=== PATIENT | female | born 1975 | race Caucasian/White ===

== ENCOUNTER 2018-06-17 19:24 | Observation (INO) | payer SELFPAY ==
[2018-06-17] MEDS ORDERED: Mag-Al Plus 1200 MG/1200 MG/120 MG/30 ML UDCUP ONE (19:41)
[2018-06-17] MEDS ORDERED: Ondansetron PF 4 MG/2 ML Vial ONE ×2 (19:41→22:55)
[2018-06-17] MEDS ORDERED: Lidocaine Viscous Sol 2% 15 ml UD Cup ONE (19:41)
[2018-06-17] MEDS ORDERED: Morphine 4 MG/ML VIAL ONE (19:41)
[2018-06-17] MEDS ORDERED: Famotidine/PF 20 mg/2ml Vial ONE (19:41)
[2018-06-17 20:28] LABS: #Basophils 0.1 thou/uL (0.0-0.2); #Eosinphils 0.5 thou/uL (0.0-0.7); #Lymphocytes 1.9 thou/uL (1.20-3.40); #Monocytes 0.6 thou/uL (0.11-0.59); #Neutrophils 5.6 thou/uL (1.40-6.50); %Basophils 0.8 % (0.0-1.0); %Eosinophils 5.8 % (0.0-10.0); %Lymphocytes 21.6 % (21.0-51.0); %Neutrophils 64.9 % (42.0-75.0); Hemoglobin 12.4 g/dL (12.0-16.0); Mean Corpuscular HGB CONC 31.8 g/dL (32.0-36.0); Mean Corpuscular Hemoglobin 27.6 pg (27.0-31.0); Mean Corpuscular Volume 86.8 fL (78.0-98.0); Mean Platelet Volume 7.1 fL (7.4-10.4); Platelet Count 275 thou/uL (130-400); RBC Distribution Width 12.8 % (11.5-14.5); Red Blood Cell (RBC) Count 4.49 mill/uL (4.20-5.40); White Blood Cell (WBC) Count 8.7 thou/uL (4.8-10.8)
[2018-06-17 20:35] LABS: Bilirubin Small (Negative); Blood, Urine Negative (Negative); Clarity Hazy (Clear); Glucose, Urine (Dipstick) Negative (Negative); Leukocyte Trace (Negative); Nitrite Negative (Negative); Protein, Urine (Dipstick) Trace mg/dL (Neg-Trace); Specific Gravity, Urine 1.026 (1.002-1.036); Urobilinogen 0.2 mg/dL (0.2-1.0); pH, Urine 5.5 (5.0-9.0)
[2018-06-17 20:37] LABS: Bacteria/HPF 1+ HPF (None Seen); RBC/HPF None Seen HPF (0-3); Squamous Epithelial 21-50 HPF (0-3); WBC/HPF 0-3 HPF (0-3)
[2018-06-17 20:38] LABS: Pregnancy Test - Urine (BHCG) Negative (Negative); Specific Gravity 1.026 (1.002-1.036)
[2018-06-17 20:39] LABS: Pregu Control Background? CLEAR/WHITE (CLR/WHITE); Pregu Control Bar Appear? YES (CONTROL BAR)
[2018-06-17 20:43] LABS: ALT (SGPT) 26 U/L (8-55); AST (SGOT) 15 U/L (5-34); Alkaline Phosphatase 50 U/L (40-150); Anion Gap 12 mmol/L (10-20); BUN (Urea Nitrogen) 15 mg/dL (7.0-18.7); Bilirubin, Total 0.4 mg/dL (0.2-1.2); CK (CPK) 48 U/L (29-168); Calc. Creatinine Clearance 0 mL/min (70-130); Calcium 9.4 mg/dL (7.8-10.44); Carbon Dioxide 26 mmol/L (22-29); Chloride 104 mmol/L (98-107); Estimated GFR-MDRD 80; Globulin 2.9 g/dL (2.4-3.5); Glucose 114 mg/dL (70-105); Lipase 10 U/L (8-78); Potassium 3.4 mmol/L (3.5-5.1); Protein, Total 6.9 g/dL (6.0-8.3); Sodium 139 mmol/L (136-145)
[2018-06-17] MEDS ORDERED: Aspirin Chewable 81 MG TAB ONE (20:52)
--- NOTE | 2018-06-17 20:55 | CT ---
CT of the abdomen and pelvis: 06/17/2018 COMPARISON: None HISTORY: Nausea, vomiting, and pain TECHNIQUE: Axial CT imaging at 5 mm intervals through abdomen and pelvis without contrast. Coronal re formatted imaging obtained. FINDINGS: The lack of contrast media limits assessment of the viscera, bowel, vascular structures, an d for lymphadenopathy. The imaged lung bases appear unremarkable. No free intraperitoneal air or fluid is seen. The hepatic parenchyma is hypodense, evidence of steatosis. Gallbladder, spleen, pancreas, and adrena l glands demonstrate no acute CT findings. No nephrolithiasis or hydronephrosis noted on either side. There is a calcification along the course of the left ureter on axial image 78 measuring 4 mm. There is no evidence for associated obstructive uropathy and thus, this is likely vascular in nature. The uterus appears surgically absent. Limited assessment of the bowel demonstrates no evidence for obstruction. No acute osseous abnormality noted. IMPRESSION: No evidence for obstructive uropathy.
[2018-06-17 21:00] LABS: CKMB 1.3 ng/mL (0-6.6)
[2018-06-18 00:01] VITALS: BMI 41.3
[2018-06-18 01:27] LABS: Troponin I 0.078 ng/mL (< 0.028)
[2018-06-18 05:18] LABS: Troponin I 0.068 ng/mL (< 0.028)
[2018-06-18] MEDS: Sodium Chloride 0.9% 1,000 ML IV SCH ×2 (10:02→18:23)
[2018-06-18] MEDS: Gabapentin 300 MG CAP PO SCH ×3 (10:03→19:19)
[2018-06-18] MEDS: Famotidine/PF 20 mg/2ml Vial SLOW IVP SCH ×2 (10:03→19:20)
[2018-06-18] MEDS: PARoxetine 20 MG TAB PO SCH (10:04)
[2018-06-18] MEDS: Ondansetron PF 4 MG/2 ML Vial IVP PRN (11:44)
[2018-06-18] MEDS ORDERED: Lidocaine 2% Viscous Solution 10 ML, Aluminum & Magnesium Hydroxide 30 ML SSW SCH (16:00)
--- NOTE | 2018-06-18 17:38 | HP ---
CHIEF COMPLAINT: Nausea, vomiting, and diarrhea. HISTORY OF PRESENT ILLNESS: The patient is a pleasant 42-year-old female with past medical history significant for borderline hyperlipidemia, fibromyalgia along with history of lupus, followed closely by her PCP, Dr. Conklin in [place], although the patient has not required any treatment thus far, who presented to the hospital with complaints of a 1-day history of nausea and vomiting along with epigastric pain. The patient's symptoms started yesterday at about 3 or 4 a.m. She had abdominal discomfort that she describes as burning, with some radiation to the back. She continued to have associated nausea and vomiting throughout the day. Eventually, her symptoms worsened to the point that she decided to seek treatment and presented to the emergency department here at [facility] for further workup and treatment. Workup on arrival included an abdominal and pelvis CT, which showed limited assessment of the viscera, bowel, and vascular structures secondary to lack of contrast, but no free intraperitoneal air or fluid was seen. Hepatic parenchyma was hypodense, evidence of steatosis. Gallbladder , spleen, and pancreas along with adrenal gland showed no acute CT findings. There was no evidence of obstructive uropathy. Lab work was significant for mild hypokalemia with level of 3.4 along with elevated troponin of 0.098, 0.078, and 0.068 respectively. Her initial EKG showed sinus tachycardia, no acute ST or T- wave changes. Followup EKG when the patient arrived to the floor showed sinus rhythm with some nonspecific ST or T-wave changes. The patient has denied any associated chest pain or shortness of breath. She is fairly active. She has denied any recent palpitations or dizziness. The patient does report that one of her neighbors who she is friends with did also come down with a stomach illness recently. The patient has denied any fever or chills. ALLERGIES: NO KNOWN DRUG ALLERGIES. HOME MEDICATIONS: 1. Gabapentin 300 mg capsule 900 mg p.o. t.i.d. 2. Paxil 60 mg p.o. daily. REVIEW OF SYSTEMS: The patient reports some chronic lower extremity mild edema that she has had for many years. Otherwise, 12-point review of systems performed and is negative except that stated above. PAST MEDICAL HISTORY: Lupus, fibromyalgia, anxiety, borderline hyperlipidemia. SOCIAL HISTORY: The patient has never smoked. She drinks alcohol rarely. She is and lives with her and teenage daughter. The patient is trying to get into [employer]. FAMILY HISTORY: Positive for coronary artery disease in both her mother and her father. She reports that her mother has had [address] Honeycutt, the first was when she was 64. Her dad also had an ID in his 60s and has had a history of stents. PAST SURGICAL HISTORY: Positive for hysterectomy. CODE STATUS: The patient is a full code, and this was discussed with the patient. PHYSICAL EXAMINATION: VITAL SIGNS: Blood pressure 124/60, respirations 22, O2 saturation is 97, pulse 92, temperature is 98.7. GENERAL: The patient is a mildly obese female who appears stated age. She is resting comfortably in bed. She is in no acute distress. HEENT: Head, atraumatic and normocephalic. Mucous membranes are moist. NECK: No lymphadenopathy. No JVD. Trachea is midline. No carotid bruits. CV: S1 and S2. Regular rate and rhythm. No appreciable murmurs, rubs, or gallops. LUNGS: Regular respiratory rate and pattern. Clear to auscultation bilaterally. ABDOMEN: Soft with positive bowel sounds. Mildly tender to palpation in the epigastric region. No masses. No organomegaly. EXTREMITIES: Trace edema bilaterally. Both extremities are warm and well perfused. +2 DP pulses bilaterally. SKIN: No rashes or discolorations. Warm with normal turgor. NEUROLOGIC: Cranial nerves 2 through 12 intact. The patient is nonfocal. LABORATORY DATA: White blood cell count 8.7, hemoglobin 12.4, hematocrit 39.0, platelets are 275. Sodium 139, potassium 3.4, chloride 104, anion gap 12, carbon dioxide 26, creatinine 0.78, estimated GFR is 80, glucose 114, lactic acid 0.8. AST, ALT, and alkaline phosphatase all within normal limits. Troponin I 0.098, 0.078, 0.068 respectively. Urinalysis shows 1+ urine bacteria and trace leukocyte esterase. IMAGING RESULTS: CT scan and EKGs as outlined in HPI. ASSESSMENT: 1. Nausea, vomiting, and diarrhea, likely secondary to viral gastroenteritis, improving with supportive care, antiemetics, and IV fluid resuscitation. 2. Demand ischemia, likely secondary to above. 3. Abnormal EKG with nonspecific ST wave changes. 4. Obesity. 5. Borderline hyperlipidemia. 6. History of lupus. PLAN: We will continue supportive care for her gastroenteritis including IV Pepcid, antiemetics, and IV fluid resuscitation. We will start clear diet and advance as tolerated. Her last episode of vomiting or diarrhea was over 12 hours ago. We will check fasting lipid panel in the morning and continue to monitor her electrolytes. Given the patient's troponin bump, we will proceed with nuclear stress test in the morning. The patient does have risk factors of hyperlipidemia and family history of coronary artery disease. Further recommendations will be based on hospital course and findings of nuclear stress test. The care of this patient has been discussed with Dr. Hoover who agrees with the above. Job ID: [id number] MTDD
--- NOTE | 2018-06-18 23:17 | EKG ---
Test Reason : Blood Pressure : / mmHG Vent. Rate : 093 BPM Atrial Rate : 093 BPM P-R Int : 160 ms QRS Dur : 096 ms QT Int : 382 ms P-R-T Axes : 051 064 056 degrees QTc Int : 474 ms Normal sinus rhythm Nonspecific ST abnormality Abnormal ECG No previous ECGs available Confirmed by ALEXIS AREVALO ([id number]) on 06/18/2018 11:17:10 PM Referred By: SHAHID ALFARO PA-C Confirmed By:ALEXIS AREVALO
[2018-06-19] MEDS: Sodium Chloride 0.9% 1,000 ML IV SCH ×3 (00:50→15:19)
[2018-06-19] MEDS: Ondansetron PF 4 MG/2 ML Vial IVP PRN (03:26)
[2018-06-19 04:23] LABS: Bilirubin Negative (Negative); Blood, Urine Negative (Negative); Clarity Clear (Clear); Glucose, Urine (Dipstick) Negative (Negative); Leukocyte Negative (Negative); Nitrite Negative (Negative); Protein, Urine (Dipstick) Negative (Neg-Trace); Specific Gravity, Urine 1.005 (1.002-1.036); Urobilinogen 0.2 mg/dL (0.2-1.0); pH, Urine 6.5 (5.0-9.0)
[2018-06-19 05:14] LABS: #Basophils 0.1 thou/uL (0.0-0.2); #Eosinphils 0.7 thou/uL (0.0-0.7); #Lymphocytes 2.9 thou/uL (1.20-3.40); #Monocytes 0.5 thou/uL (0.11-0.59); %Basophils 1.3 % (0.0-1.0); %Eosinophils 10.2 % (0.0-10.0); %Monocytes 6.9 % (0.0-10.0); %Neutrophils 41.6 % (42.0-75.0); Hemoglobin 13.3 g/dL (12.0-16.0); Mean Corpuscular HGB CONC 32.4 g/dL (32.0-36.0); Mean Corpuscular Hemoglobin 28.7 pg (27.0-31.0); Mean Corpuscular Volume 88.5 fL (78.0-98.0); Mean Platelet Volume 7.4 fL (7.4-10.4); Platelet Count 280 thou/uL (130-400); RBC Distribution Width 12.6 % (11.5-14.5); Red Blood Cell (RBC) Count 4.63 mill/uL (4.20-5.40); White Blood Cell (WBC) Count 7.2 thou/uL (4.8-10.8)
[2018-06-19 05:59] LABS: Anion Gap 13 mmol/L (10-20); BUN (Urea Nitrogen) 10 mg/dL (7.0-18.7); Calc. Creatinine Clearance 172 mL/min (70-130); Calcium 9.1 mg/dL (7.8-10.44); Carbon Dioxide 23 mmol/L (22-29); Cardiac Risk 5.9 (Less than 4.5); Chloride 108 mmol/L (98-107); Cholesterol 255 mg/dl (< 200 Desired); Estimated GFR-MDRD 88; Glucose 78 mg/dL (70-105); HDL Cholesterol 43 mg/dL (>60 Neg Risk); LDL Cholesterol, Calculated 189 mg/dL; Potassium 3.3 mmol/L (3.5-5.1); Sodium 141 mmol/L (136-145); Triglycerides 116 mg/dL (Less than 150)
[2018-06-19] MEDS: Famotidine/PF 20 mg/2ml Vial SLOW IVP SCH (08:46)
[2018-06-19] MEDS: Gabapentin 300 MG CAP PO SCH ×3 (08:47→20:14)
[2018-06-19] MEDS: PARoxetine 20 MG TAB PO SCH (08:47)
[2018-06-19] MEDS ORDERED: Calcium Carbonate 500 MG ChewTAB PO PRN (09:47)
[2018-06-19] MEDS ORDERED: Lidocaine 2% Viscous Solution 20 ML, Aluminum & Magnesium Hydroxide 30 ML, Donnatal Eli... SSW SCH (10:00)
[2018-06-19] MEDS ORDERED: Lorazepam 2 MG/ML VIAL SLOW IVP SCH (13:45)
[2018-06-19] MEDS ORDERED: Melatonin 3 MG TAB PO PRN (19:16)
--- NOTE | 2018-06-19 19:31 | PRG ---
DATE OF SERVICE: 06/18/2018 SUBJECTIVE: Ms. Corwell is a 42-year-old female with past medical history significant for hyperlipidemia, history of lupus, and fibromyalgia, who presented to the hospital with complaints of nausea, vomiting, and epigastric pain. The patient has been admitted with viral gastroenteritis. She still continues to complain of some burning epigastric pain, but this is relieved with GI cocktail and Tums. She is tolerating oral intake. She denies any chest pain or shortness of breath. Her serial troponin was indeterminate at admission, and nuclear stress test has been ordered of which the first portion, the stress images were performed today. OBJECTIVE: VITAL SIGNS: Blood pressure 120/58, O2 saturation 95% on room air, respirations are 12, pulse is 80, sinus. The patient is afebrile, temperature 98.2. GENERAL: The patient is a mildly obese female, who appears her stated age. She is resting comfortably. No acute distress. HEENT: Head, atraumatic and normocephalic. Mucous membranes are moist. NECK: No lymphadenopathy. No JVD. Trachea is midline. No carotid bruits. CV: S1 and S2. Regular rhythm. No appreciable murmurs, rubs, or gallops. LUNGS: Regular respiratory rate and pattern. Clear to auscultation bilaterally. ABDOMEN: Soft. Positive bowel sounds. Mildly tender to palpation in the epigastric region. No masses. No organomegaly. EXTREMITIES: Trace edema bilaterally. Both extremities are warm and well perfused. +2 DP pulses bilaterally. SKIN: No rash or discolorations, warm with normal turgor. NEUROLOGIC: Cranial nerves 2 through 12 intact. The patient is nonfocal. LABORATORY DATA: White blood cell count 7.2, hemoglobin 13.3, hematocrit 41, and platelets are 280. Sodium 141, potassium 3.3, chloride 108, carbon dioxide 23, anion gap 13, creatinine 0.72, triglycerides 116, total cholesterol 255, LDL 189, and HDL 43. ASSESSMENT: 1. Nausea, vomiting, and diarrhea secondary to viral gastroenteritis, much improved with supportive care. 2. Demand ischemia, likely secondary to above. 3. Hyperlipidemia. 4. Abnormal EKG with nonspecific ST wave changes. 5. Obesity. 6. History of lupus. PLAN: The patient will have rest images with nuclear medicine tomorrow morning. We will continue antiemetics and supportive care for her gastroenteritis, which is improving. We will advance diet as tolerated. Given cholesterol panel obtained in-house, we will initiate statin therapy for this patient with atorvastatin 20 mg nightly. Further recommendations based on findings of final MPI tomorrow. Anticipate discharge if MPI is normal. Care discussed with Dr. Hoover, who agrees with the above. Job ID: [id number]
[2018-06-19] MEDS: Famotidine 20 MG TAB PO SCH (20:10)
[2018-06-19] MEDS ORDERED: Atorvastatin Calcium 20 MG TAB PO SCH (21:00)
[2018-06-20 08:04] VITALS: BP 103/54; TEMP 98.4
[2018-06-20] MEDS ORDERED: Lorazepam 2 MG/ML VIAL SLOW IVP SCH (08:15)
--- NOTE | 2018-06-20 10:05 | NM ---
EXAM: CARDIAC SPECT HISTORY: Chest pain, elevated troponin, dyslipidemia. TECHNIQUE: A myocardial perfusion scan was performed using the single isotope 2 day protocol with vitor hnetium 99m sestamibi. [30] was injected intravenously for the rest exam followed by 30 mCi for the stress study. Pharmacologic stress with adenosine was monitored and interpreted by Braulio Perdomo NP FINDINGS: Homogeneous tracer distribution is seen in the myocardial segments on stress and rest image s without fixed or reversible defects. Gated SPECT LVEF: 80% Wall motion exam: Normal IMPRESSION: Normal myocardial perfusion scan
[2018-06-20] MEDS: Gabapentin 300 MG CAP PO SCH (10:09)
[2018-06-20] MEDS: Famotidine 20 MG TAB PO SCH (10:10)
[2018-06-20] MEDS: PARoxetine 20 MG TAB PO SCH (10:10)
--- NOTE | 2018-06-21 01:56 | DIS ---
DATE OF ADMISSION: 06/17/2018 DATE OF DISCHARGE: 06/20/2018 ALLERGIES: NO KNOWN DRUG ALLERGIES. CHIEF COMPLAINT: Nausea, vomiting, and diarrhea. FINAL DIAGNOSES: 1. Nausea, vomiting, and diarrhea secondary to viral gastroenteritis, resolved with supportive care, antiemetics, and IV fluid resuscitation. 2. Demand ischemia secondary to above, nuclear stress test negative for ischemia, with normal ejection fraction. 3. Obesity. 4. Hyperlipidemia. 5. History of lupus. 6. Fibromyalgia. PROCEDURE PERFORMED: None. LABORATORY RESULTS: White blood cell count 7.2, hemoglobin 13, hematocrit 41, platelet count is 280. Sodium 141, potassium 3.3, chloride 108, creatinine 0.72, carbon dioxide 23, anion gap 13, BUN 10. AST, ALT, and alkaline phosphatase all within normal limits. Troponin 0.098, 0.078, 0.068 respectively. Triglycerides 116, cholesterol 255, LDL 189, HDL 43. IMAGING RESULTS: Abdominal and pelvis CT, which showed limited assessment of the viscera, bowel, and vascular structures secondary to lack of contrast, but no free intraperitoneal air or fluid was seen. Hepatic parenchyma was hypodense, evidence of steatosis. Gallbladder, spleen, pancreas, along with adrenal gland showed no acute CT findings. There was no evidence of obstructive uropathy. EKG showed sinus rhythm with nonspecific ST- and T-wave changes. Nuclear medicine cardiac stress test showed normal myocardial perfusion imaging. Normal left ventricular systolic function with EF 80% and normal wall motion, no evidence of ischemia. CONSULTATIONS: None. VITAL SIGNS: Blood pressure 103/54, O2 saturation 96% on room air, respirations 16, pulse 89, temperature 98.4. HOSPITAL COURSE: The patient is a pleasant 42-year-old female with past medical history significant for borderline hyperlipidemia, fibromyalgia, along with history of lupus, followed closely by her PCP, who presented to the hospital with complaints of 1-day history of nausea, vomiting, and diarrhea along with a burning epigastric discomfort. Her abdominal discomfort with sometimes radiate to the back. She tried [id number] remedies, but her symptoms continued to worsen until she decided to seek treatment in the emergency department. CT scan was negative for any acute findings. The patient denied any chest pain or shortness of breath. She denied any palpitations. She did admit that she did have a sick contact in one of her neighbors, who also had a gastrointestinal illness recently. She denied any fevers or chills. Troponin on arrival was elevated at 0.098, 0.078, and 0.068 respectively. The patient's abdominal symptoms improved greatly with antiemetics, IV fluids, and GI cocktail. She underwent myocardial perfusion imaging, which showed no evidence of reversible ischemia and normal EF. On the morning of my interview, she has had no further epigastric discomfort. She has had no nausea or vomiting in 24 hours. She has ambulated the halls without issue. She denies any chest pain or shortness of breath. PHYSICAL EXAMINATION: GENERAL: The patient is a mildly obese female, who appears stated age, resting comfortably in bed. She is in no acute distress. HEENT: Head, atraumatic and normocephalic. Mucous membranes are moist. NECK: No lymphadenopathy. No JVD. Trachea is midline. No carotid bruits. CV: S1 and S2. Regular rate and rhythm. No appreciable murmurs, rubs, or gallops. LUNGS: Regular respiratory rate and pattern. Clear to auscultation bilaterally. ABDOMEN: Soft, positive bowel sounds, nontender. No masses or organomegaly. EXTREMITIES: Trace edema bilaterally, chronic. Extremities are warm and well perfused. +2 DP pulses bilaterally. SKIN: No rashes or discolorations. Warm with normal turgor. NEUROLOGIC: Cranial nerves 2 through 12 intact. The patient is nonfocal. CONDITION ON DISCHARGE: Stable. DISCHARGE MEDICATIONS: She will continue her home medications, which include; 1. Gabapentin 900 mg p.o. t.i.d. 2. Paxil 60 mg p.o. daily. New medications will include; 1. Atorvastatin 20 mg p.o. at bedtime. 2. Pepcid 20 mg tablet one tablet p.o. b.i.d. 3. Zofran 4 mg tablet one tablet p.o. q.6 hours. DISCHARGE DISPOSITION: Home. PLAN: I have explained the findings of the stress test along with her blood work which reveals mixed hyperlipidemia. I have explained the importance of aggressive risk factor modification. She has agreed to start statin. She will follow up with her primary care physician for repeat lab work. She will continue diet, exercise, and weight loss. Her abdominal symptoms have completely resolved. She will be discharged home today in good condition. Care discussed with Dr. Hoover, who agrees with the above. Job ID: [id number]
--- NOTE | 2018-06-24 08:35 | STRESS ---
Acquisition Time: 2018-06-19 12:43:45 Total Exercise Time: 00:04:00 Test Indications: ELEVATED TROPONIN Medications: Protocol: ADENOSINE Max HR: 123 BPM 69% of Pred: 176 BPM Max BP: 110/076 mmHG Max Work Load: 1.0 METS RESTING ECG: NORMAL SINUS RHYTHM AT 93 BPM WITH NONSPECIFIC T-WAVE CHANGES SYMPTOMS: HEADACHE NORMAL BP RESPONSE ECTOPY: NONE ECG STRESS: .[address] DEPRESSION INTERPRETATION: POSITIVE ECG/AWAIT NUCLEAR IMAGES FOR DEFINITIVE DIAGNOSIS Confirmed by ENRICO STAPLES ([id number]), editorial cartoonist CARIDAD CHILDRESS ([id number]) on 06/24/2018 8:34:56 AM Referred By: ALICIA JARAMILLO Confirmed By:ENRICO STAPLES
== END 2018-06-20 11:26 | disposition home or self-care (01) ==
LOC: SCSER 19:24 → 2SW 23:04
PROVIDERS: ADMIT Internal Medicine; ATTEND Internal Medicine
DX: A08.4 Viral intestinal infection, unspecified (principal); I24.8 Other forms of acute ischemic heart disease; R10.13 Epigastric pain; M79.7 Fibromyalgia; F41.9 Anxiety disorder, unspecified; E78.5 Hyperlipidemia, unspecified; M32.9 Systemic lupus erythematosus, unspecified; E66.9 Obesity, unspecified; Z68.41 Body mass index [BMI] 40.0-44.9, adult; Z79.899 Other long term (current) drug therapy
CPT/HCPCS: 36415; 74176; 78452; 80048; 80053; 80061; 81003; 81015; 81025; 82550; 82553; 83605; 83690; 84484; 85025; 93005; 93010; 93017; 96361; 96374; 96375; 96376; A9500; G0378; J0153; J2060; J2270; J2405; S0028

== ENCOUNTER 2023-01-09 18:26 | Emergency (ER) | payer SELFPAY ==
[2023-01-09 20:13] LABS: #Basophils 0.1 thou/uL (0.0-0.2); #Eosinphils 0.3 thou/uL (0.0-0.7); #Monocytes 0.5 thou/uL (0.11-0.59); #Neutrophils 3.2 thou/uL (1.40-6.50); %Basophils 0.9 % (0.0-1.0); %Eosinophils 4.2 % (0.0-10.0); %Monocytes 6.4 % (0.0-10.0); %Neutrophils 43.4 % (42.0-75.0); Hematocrit 46.8 % (36.0-47.0); Hemoglobin 15.4 g/dL (12.0-16.0); Mean Corpuscular HGB CONC 32.9 g/dL (32.0-36.0); Mean Corpuscular Volume 85.1 fl (78.0-98.0); Platelet Count 282 10x3/uL (130-400); RBC Distribution Width 13.4 % (11.5-14.5); White Blood Cell (WBC) Count 7.4 10x3/uL (4.8-10.8)
[2023-01-09 20:36] LABS: Bilirubin Negative (Negative); Blood, Urine Negative (Negative); CAUTI Indications for Culture Dysuria,urgency,freq; Calcium Oxalate Crystals Rare HPF (None Seen); Clarity Clear (Clear); Glucose, Urine (Dipstick) Normal (Negative); Ketone, Urine Negative (Negative); Leukocyte Negative Leu/uL (Negative); Nitrite Negative (Negative); Protein, Urine (Dipstick) Negative (Neg-Trace); RBC/HPF 0-3 HPF (0-3); Specific Gravity, Urine 1.009 (1.002-1.036); Urobilinogen Normal mg/dL (Less than 2); WBC/HPF 0-3 HPF (0-3); pH, Urine 6.5 (5.0-9.0)
[2023-01-09 20:37] LABS: Bacteria/HPF Rare-Few HPF (None Seen); Urine Culture Reflex No No
[2023-01-09 20:44] LABS: ALT (SGPT) 33 U/L (8-55); AST (SGOT) 27 U/L (5-34); Alkaline Phosphatase 66 U/L (40-110); Anion Gap 15 mmol/L (10-20); BUN (Urea Nitrogen) 11 mg/dL (7.0-18.7); Bilirubin, Total 0.6 mg/dL (0.2-1.2); Calc. Creatinine Clearance 0 mL/min (70-130); Calcium 9.5 mg/dL (7.8-10.44); Carbon Dioxide 23 mmol/L (22-29); Chloride 102 mmol/L (98-107); Estimated GFR 85; Globulin 2.7 g/dL (2.4-3.5); Glucose 94 mg/dL (70-105); Potassium 3.4 mmol/L (3.5-5.1); Protein, Total 7.7 g/dL (6.0-8.3); Sodium 137 mmol/L (136-145)
== END 2023-01-09 21:42 | disposition home or self-care (01) ==
LOC: ERS 18:26
DX: N39.0 Urinary tract infection, site not specified (principal)
CPT/HCPCS: 36415; 80053; 81001; 85025; 99283

== ENCOUNTER 2023-06-28 16:47 | Emergency (ER) | payer SELFPAY | END 2023-06-28 18:24 | disposition home or self-care (01) | LOC: ERS 16:47 | DX: B37.2 Candidiasis of skin and nail (principal); N61.0 Mastitis without abscess | CPT/HCPCS: 99282 ==